=== PATIENT | female | born 1955 | race American Indian/Alaskan Native ===

== ENCOUNTER 2018-04-18 12:01 | Emergency (ER) | payer OTHER ==
[2018-04-18 12:10] VITALS: BMI 34.7
--- NOTE | 2018-04-18 13:46 | C.PDOC ---
History Of Present Illness 62 year old female presents to the emergency department with complaints of a rash to her neck and back since yesterday. Patient reports that she was being seen at an urgent care center and was treated with Benadryl and Prednisone. Patient states that while at the urgent care center her hands became swollen, and the urgent care doctors became concerned and told her to present here for further evaluation. Time Seen by Provider: 04/18/18 12:19 Chief Complaint (Nursing): Allergic Reaction History Per: Patient History/Exam Limitations: no limitations Onset/Duration Of Symptoms: Days (1) Current Symptoms Are (Timing): Still Present Possible Cause: Unknown Associated Symptoms: Skin Rash Past Medical History Reviewed: Historical Data, Nursing Documentation, Vital Signs Vital Signs: Last Vital Signs Temp 98.4 F 04/18/18 12:10 Pulse 78 04/18/18 12:10 Resp 20 04/18/18 12:10 BP 133/76 04/18/18 12:10 Pulse Ox 97 04/18/18 12:10 - Medical History PMH: No Chronic Diseases Surgical History: No Surg Hx Family History: States: No Known Family Hx - Social History Hx Alcohol Use: Yes Hx Substance Use: No - Immunization History Hx Tetanus Toxoid Vaccination: No Hx Influenza Vaccination: No Hx Pneumococcal Vaccination: No Review Of Systems Except As Marked, All Systems Reviewed And Found Negative. Skin: Positive for: Rash Physical Exam - Physical Exam Appears: Non-toxic, No Acute Distress Skin: Warm, Dry, Rash (scant urticarial rash to the left back) Head: Atraumatic, Normacephalic Eye(s): bilateral: Normal Inspection Nose: Normal Oral Mucosa: Moist Tongue: Normal Appearing, No Swelling Lips: Normal Appearing, No Swelling Chest: Symmetrical, No Tenderness Cardiovascular: Rhythm Regular, No Murmur Respiratory: Normal Breath Sounds, No Rales, No Rhonchi, No Wheezing Neurological/Psych: Oriented x3, Normal Speech, Normal Cognition ED Course And Treatment O2 Sat by Pulse Oximetry: 97 (RA) Pulse Ox Interpretation: Normal Disposition - Disposition Referrals: [facility] [Outside] Disposition: HOME/ ROUTINE Disposition Time: 13:45 Condition: STABLE Additional Instructions: Follow up with the medical doctor within 1-2 days without fail. Return if worsened. Instructions: Hives (DC) Forms: [employer] ([place]) - Clinical Impression Clinical Impression: Allergic urticaria - PA / [facility] C[facility] ASSISTANT DIRECTOR / Resident Statement MD/DO has reviewed & agrees with the documentation as recorded. - Scribe Statement The provider has reviewed the documentation as recorded by the Scribe (Cosme Forrester) All medical record entries made by the Scribe were at my direction and personally dictated by me. I have reviewed the chart and agree that the record accurately reflects my personal performance of the history, physical exam, medical decision making, and the department course for this patient. I have also personally directed, reviewed, and agree with the discharge instructions and disposition.
[2018-04-18 14:13] VITALS: BP 149/80; PULSE 82; RESP 16; TEMP 98.2
[2018-04-18 21:43] VITALS: O2SAT 97
== END 2018-04-18 14:13 | disposition home or self-care (01) ==
LOC: C.ER 12:01
DX: L50.0 Allergic urticaria (principal)